=== PATIENT | male | born 1995 | race Caucasian/White ===

== ENCOUNTER 2017-03-01 15:05 | Emergency (ER) | payer BC ==
[2013-09-22 11:25] VITALS: BMI 28.3
[2017-03-01 16:40] LABS: APPEARANCE CLEAR (CLEAR); BILIRUBIN NEGATIVE (NEGATIVE); COLOR YELLOW (YELLOW); GLUCOSE NEGATIVE (NEGATIVE); KETONE NEGATIVE (NEGATIVE); LEUKOCYTE ESTERASE NEGATIVE (NEGATIVE); NITRITE NEGATIVE (NEGATIVE); PROTEIN NEGATIVE (NEGATIVE); SPECIFIC GRAVITY 1.005 (1.005-1.020); UROBILINOGEN NORMAL (NORMAL)
== END 2017-03-01 17:42 | disposition home or self-care (01) ==
LOC: D.ER 15:05
PROVIDERS: Emergency Medicine
DX: K59.00 Constipation, unspecified (principal)